=== PATIENT | female | born 1970 | race American Indian/Alaskan Native ===

== ENCOUNTER 2016-12-31 10:35 | Outpatient (CLI) | payer BC ==
[2016-12-31 11:38] LABS: Blood Urea Nitrogen 11 mg/dL (7-17)
--- NOTE | 2016-12-31 14:24 | Cat Scan Report ---
CT ABDOMEN AND PELVIS WITH CONTRAST INDICATION: Abdominal pain. COMPARISON: None similar. FINDINGS: Abdomen and pelvis CT performed following oral contrast and intravenous administration of 100 cc of Omnipaque 300. LUNG BASES: Normal heart size. No effusions. Mild nonspecific prominence of the distal esophagus. ABDOMEN: Approximately 2.8 cm right hepatic hemangioma superiorly. Otherwise unremarkable liver, spleen, gallbladder, pancreas, adrenals, nonaneurysmal abdominal aorta, IVC and kidneys without hydronephrosis, ascites or size significant adenopathy. Nonopacified GI tract evaluation limited, though grossly nonobstructive. PELVIS: Innumerable fibroids, including the largest exophytic off the fundus approximately 10 cm, image 471, series 2 while another posterior exophytic fibroid inferiorly is approximately 6.4 cm, axial image 525. Uterus enlarged to approximately 19 cm in length, rising to the level of the umbilicus/iliac crests. Rectosigmoid somewhat displaced to the right by the fibroids as also partly the urinary bladder, though grossly unremarkable. No free fluid or significant adenopathy. Slight lower lumbar spine degenerative spurring. CONCLUSION: Extensive fibroids noted with few other incidental findings, including a 2.8 cm right hepatic hemangioma superiorly, as described. Thank you for the opportunity to participate in this patient's care.
--- NOTE | 2016-12-31 14:39 | Cat Scan Report ---
CTA CHEST: History: Pulmonary embolism. Technique: Helical CT following IV contrast. Pulmonary embolus protocol. Sagittal and coronal reformatted images. Rotational MIP images. Findings: Contrast bolus is satisfactory. No pulmonary embolus is identified. The thyroid gland, tracheobronchial tree, esophagus, heart, pericardium, mediastinal vessels, lung epstein and bony thorax are unremarkable. Impression: No evidence for pulmonary embolus. Unremarkable CT chest with contrast.
== END 2016-12-31 10:36 | disposition home or self-care (01) ==
LOC: CT 10:35
PROVIDERS: ATTEND Internal Medicine Gastroenterology
DX: D30.3 Benign neoplasm of bladder (principal); I26.99 Other pulmonary embolism without acute cor pulmonale; R10.9 Unspecified abdominal pain; M47.896 Other spondylosis, lumbar region; D18.09 Hemangioma of other sites; N85.2 Hypertrophy of uterus
CPT/HCPCS: 36415; 71275; 74177; 82565; 84520; Q9967

== ENCOUNTER 2020-11-11 14:45 | Emergency (ER) | payer BC, OTHER ==
[2020-11-11] MEDS ORDERED: TETANUS,DIPH,PERTUSS(ACELL) VACCINE 0.5 ML SYRINGE IM ONE (15:05)
[2020-11-11] MEDS ORDERED: LIDOCAINE (1%) 10 MG/1 ML VIAL 20 ML MDV INFILTRATI ONE (15:05)
--- NOTE | 2020-11-11 15:07 | Emergency Department Report ---
ED General Adult HPI - General Chief complaint: Wound/Laceration Stated complaint: FINGER LAC Time Seen by Provider: 11/11/20 14:59 Source: patient Mode of arrival: Ambulatory Limitations: No Limitations - History of Present Illness Initial comments: 50-year-old [id number] female patient presents to the emergency department with complaints of a laceration to her left third finger occurring today. Patient states she accidentally cut herself while she was cooking. Cannot recall last tetanus immunization. Patient is on Eliquis. Denies wrist pain, paresthesias, skin color changes, foreign body sensation. Denies all other complaints at this time. - Related Data Allergies Allergy/AdvReac Type Severity Reaction Status Date / Time Fish Containing Products AdvReac Hives, Unverified 12/31/16 10:40 THROAT CLOSES UP fish derived AdvReac Hives,THRPAT Unverified 12/31/16 10:40 CLOSES UP ALL NUTS AdvReac Hives, Uncoded 12/31/16 10:40 THROAT CLOSES UP ANTIBOTICS AdvReac HIVES, Uncoded 12/31/16 10:40 THROATY CLOSES UP. ED Review of Systems ROS: Stated complaint: FINGER LAC Other details as noted in HPI Other: GENERAL: Negative for fever. CARDIOVASCULAR: Negative for chest pain. PULMONARY: Negative for shortness of breath. GASTROINTESTINAL: Negative for abdominal pain. MUSCULOSKELETAL: Negative for back pain. NEUROLOGICAL: Negative for headache. INTEGUMENTARY: Positive for laceration. ED Past Medical Hx - Past Medical History Previous Medical History?: Yes Hx Hypertension: Yes Additional medical history: dvt's, PE, SLEEP APNEA ED Physical Exam - General Limitations: No Limitations - Other Other exam information: General: Awake, appropriately interactive, no acute distress. Neck: Supple. Full range of motion intact. Cardiovascular: Normal peripheral perfusion. Pulmonary: No respiratory distress. Patient is speaking normally without use of accessory muscles. Skin: 0.5 cm curvilinear laceration noted to the volar aspect of the left third digit. Wound edges are well approximated. The wound does not appear grossly contaminated. Poor hemostasis. No nail involvement. Distal neurovascular and motor/sensory function intact. Neurological: No facial asymmetry. Speech is clear. Follows commands. Patient is alert and oriented. Musculoskeletal: Moves all four extremities spontaneously with normal range of motion. Psych: Cooperative. Appropriate mood and affect. ED Course Vital Signs 11/11/20 11/11/20 14:53 16:43 Temperature 98.6 F 97.6 F Pulse Rate 89 76 Respiratory 18 16 Rate Blood Pressure 157/83 155/83 [Right] O2 Sat by Pulse 100 98 Oximetry - Procedure Description Procedures done: Verbal consent was obtained from the patient. The area was prepped and draped in sterile fashion. The area was cleansed using saline and Betadine. Digital block was performed using 4 mL of lidocaine 1%. Tourniquet was applied to the base of the left third digit to achieve hemostasis. Two 5-0 Ethilon sutures were placed in a simple interrupted fashion. Bleeding controlled. Patient tolerated procedure well without complications. Patient refused topical antibiotics. Pressure dressing applied. ED Medical Decision Making - Medical Decision Making Differential diagnosis including but not limited to: laceration, abrasion, tendon injury, neurovascular injury On reevaluation, patient remains stable. Hemostasis achieved. Patient tolerated laceration repair without difficulty; see procedure note for details. Patient politely refused both topical antibiotics and tetanus immunization due to concern for allergic reaction. Patient has agreed to discuss tetanus immunization safety profile with her primary care provider during her scheduled appointment later this week. She was encouraged to keep the wound clean and covered in order to reduce risk of infection, since she reportedly has severe allergies to multiple antibiotics. Patient expressed understanding and is agreeable to plan of care. Wound care precautions discussed. Strict return precautions provided. Repeat exam is unremarkable and benign. History, exam, diagnostic testing, and current condition do not suggest worrisome pathology to warrant further testing, continued ED treatment, admission, or surgical evaluation at this point. Given the low probability of a significant medical illness, it would be more likely to result in harm than benefit to perform further testing at this stage. Discussed findings, presumptive diagnosis, need for follow-up and specific signs/symptoms that should prompt immediate return to the emergency department. Instructions were explained in detail to the patient in addition to giving written discharge information. Patient expressed understanding and was given the opportunity to ask questions, all of which were satisfactorily answered prior to discharge home. Critical care attestation.: If time is entered above; I have spent that time in minutes in the direct care of this critically ill patient, excluding procedure time. ED Disposition Clinical Impression: Finger laceration Qualifiers: Encounter type: initial encounter Finger: middle finger Damage to nail status: without damage Foreign body presence: without foreign body Laterality: left Qualified Code(s): S61.213A - Laceration without foreign body of left middle finger without damage to nail, initial encounter Disposition: TO HOME OR SELFCARE Is pt being admited?: No Does the pt Need Aspirin: No Condition: Stable Instructions: Laceration Care, Adult Additional Instructions: Take Tylenol every 4 hours as needed for pain. Keep wound clean and covered. Change dressing daily. Keep left hand elevated as often as possible over the next 12 hours to reduce swelling/bleeding. Avoid exposure to contaminated water. Follow-up with your primary care provider in 7 to 10 days for suture removal. Call Thursday to schedule an appointment. Return to the emergency department immediately for new or worsening symptoms. Specifically, return to the emergency department immediately for fever, redness, swelling, drainage, or any other concerns. Referrals: [facility] [Outside] - 3-5 Days Time of Disposition: 16:15
[2020-11-11 16:53] VITALS: BP 155/83
== END 2020-11-11 16:44 | disposition home or self-care (01) ==
LOC: ED 14:45
DX: S61.213A Laceration without foreign body of left middle finger without damage to nail, initial encounter (principal); I10 Essential (primary) hypertension; G47.30 Sleep apnea, unspecified; Z91.013 Allergy to seafood; Z88.8 Allergy status to other drugs, medicaments and biological substances; Z79.899 Other long term (current) drug therapy; W26.8XXA Contact with other sharp object(s), not elsewhere classified, initial encounter; Y93.89 Activity, other specified; Y92.89 Other specified places as the place of occurrence of the external cause; Y99.8 Other external cause status
CPT/HCPCS: 90715; 99282